=== PATIENT | male | born 1940 | race Caucasian/White ===

== ENCOUNTER 2018-06-08 13:41 | Emergency (ER) | payer MEDICARE, MEDICAID ==
[~2018-06-08] VITALS: Ht 165.1 cm; Wt 52.2 kg
--- NOTE | 2018-06-08 14:30 | NUR ---
G-tube (18fr) placed by .
[2018-06-08] MEDS ORDERED: DIATR MEGLU/DIATRIZOATE SODIUM 120 ML BOTTLE ONE (14:42)
--- NOTE | 2018-06-08 15:28 | NUR ---
Per pt may be d/c back to his [facility] facility. I spoke to Shy ([phone]) at pt's facility, gave her report and verified the address. Jorge called for transport, eta 1700.
--- NOTE | 2018-06-08 17:43 | NUR ---
Pt d/c back to his [facility] facility via [facility], NAD noted.
== END 2018-06-08 17:45 | disposition home or self-care (01) ==
LOC: ER 13:45
DX: Z43.1 Encounter for attention to gastrostomy (principal); I10 Essential (primary) hypertension; E78.5 Hyperlipidemia, unspecified; J44.9 Chronic obstructive pulmonary disease, unspecified; Z95.0 Presence of cardiac pacemaker; Z88.0 Allergy status to penicillin; Z88.6 Allergy status to analgesic agent; Z88.8 Allergy status to other drugs, medicaments and biological substances
CPT/HCPCS: 43760; 74018; 99284; Q9963; A4663

== ENCOUNTER 2018-06-14 12:14 | Inpatient (IN) | payer MEDICAID, MEDICARE ==
[~2018-06-14] VITALS: Ht 165.1 cm; Wt 52.2 kg
--- NOTE | 2018-06-14 12:30 | NUR ---
There are no ER beds available at this time, pt placed in a eros chair and pt is in the hallway.
[2018-06-14] MEDS ORDERED: LORA-258 GT (12:32)
[2018-06-14] MEDS ORDERED: MAGN400O6 GT (12:32)
[2018-06-14] MEDS ORDERED: LEVE500T9 GT (12:32)
[2018-06-14] MEDS ORDERED: ACET-2154 GT (12:32)
[2018-06-14] MEDS ORDERED: LEVO25TA9 GT (12:32)
[2018-06-14] MEDS ORDERED: DOCU-141 GT (12:32)
[2018-06-14] MEDS ORDERED: QUET25TA PO (12:32)
[2018-06-14] MEDS ORDERED: TEMA15CA5 GT (12:32)
[2018-06-14] MEDS ORDERED: FAMO40TA7 GT (12:32)
[2018-06-14] MEDS ORDERED: BISA10SU12 RC (12:32)
[2018-06-14] MEDS ORDERED: HYDR-3326 PO (12:32)
[2018-06-14] MEDS ORDERED: IPRA0.2S6 NEB (12:32)
[2018-06-14] MEDS ORDERED: GLUCERNA VANILLA GT (12:32)
--- NOTE | 2018-06-14 13:25 | NUR ---
Pt moved to room 5a.
--- NOTE | 2018-06-14 14:31 | NUR ---
transfered pt to floor in stable condition.
[2018-06-14 14:34] LABS: BASOPHILS % (AUTO) 0.2 % (0.0-2.0); EOSINOPHILS # (AUTO) 0.1 K/uL (0.0-0.7); EOSINOPHILS % (AUTO) 1.1 % (0.0-7.0); HEMATOCRIT 41.5 % (36.7-47.1); HEMOGLOBIN 13.8 g/dL (12.5-16.3); LYMPHOCYTES % (AUTO) 8.8 % (20.5-51.5); MEAN CORPUSCULAR HEMOGLOBIN 33.1 uug (23.8-33.4); MEAN CORPUSCULAR HGB CONC 33 g/dL (32.5-36.3); MEAN CORPUSCULAR VOLUME 99.3 fL (73.0-96.2); MONOCYTES # (AUTO) 0.6 K/uL (2.0-10.0); MONOCYTES % (AUTO) 5.2 % (0.0-11.0); NEUTROPHILS # (AUTO) 9.4 K/uL (1.8-8.9); NEUTROPHILS % (AUTO) 84.7 % (38.5-71.5); PLATELET COUNT (AUTO) 153 K/uL (152-348); RED BLOOD CELL COUNT(AUTO) 4.17 MIL/uL (4.06-5.63); WHITE BLOOD COUNT (AUTO) 11.1 K/uL (3.6-10.2)
[2018-06-14 14:46] LABS: CARBON DIOXIDE 26 mmol/L (21-32); CHLORIDE 106 mmol/L (98-107); CREATININE 1.1 mg/dL (0.6-1.3); GLUCOSE 71 mg/dL (74-106); POTASSIUM 4.4 mmol/L (3.5-5.1); UREA NITROGEN, BLOOD 42 mg/dL (7-18)
[2018-06-14 14:51] LABS: ALANINE AMINOTRANSFERASE 18 U/L (16-63); ALKALINE PHOSPHATASE 137 U/L (50-136); ASPARTATE AMINOTRANSFERASE 16 U/L (15-37); BILIRUBIN,DIRECT 0.3 mg/dL (0.0-0.2); BILIRUBIN,TOTAL 0.7 mg/dL (0.2-1.0)
--- NOTE | 2018-06-14 15:10 | NUR ---
78 year old male received from er via [facility] for gtube replacement,v/s are stable .call light and bed alarm on, called for admission
[2018-06-14] MEDS ORDERED: BISACODYL 10 MG SUPP.RECT RC PRN (15:30)
[2018-06-14] MEDS ORDERED: IPRATROPIUM BROMIDE 0.5 MG/2.5 ML NEBU NEB PRN (15:30)
[2018-06-14] MEDS ORDERED: LORAZEPAM 2 MG/1 ML VIAL IV PRN (15:45)
[2018-06-14] MEDS ORDERED: ONDANSETRON 4 MG/2 ML VIAL IV PRN (15:45)
[2018-06-14] MEDS ORDERED: IV D5/ 0.9% NACL 1,000 ML IV PRN (15:45)
[2018-06-14] MEDS ORDERED: ACETAMINOPHEN 650 MG SUPP.RECT RC PRN (15:45)
[2018-06-14] MEDS ORDERED: MORPHINE SULFATE 2 MG/1 ML DISP.SYRIN IV PRN (15:45)
[2018-06-14] MEDS ORDERED: IV D5W-0.45% NS 1000 ML BAG IV ONE (15:45)
[2018-06-14 16:00] VITALS: BP 123/80
[2018-06-14 16:21] LABS: *BILIRUBIN,URIN NEGATIVE (NEGATIVE); *BLOOD, URINE 2+ (NEGATIVE); *CLARITY,URINE CLOUDY (CLEAR); *COLOR,URINE YELLOW (YELLOW); *KETONES,URINE 3+ (NEGATIVE); *PROTEIN,URINE 2+ (NEGATIVE); *UROBILINOGEN,URINE 0.2 E.U./dl (NORMAL); LEUKOCYTE ESTERASE ,URINE 3+ (NEGATIVE); NITRITE, URINE POSITIVE (NEGATIVE); PH,URINE >=9.0 (5.0-8.0); UGLUCOSE NEGATIVE (NEGATIVE)
[2018-06-14 16:29] LABS: BACTERIA,URINE MANY /HPF (NONE SEEN); SQUAMOUS EPITHELIAL CELL,UR FEW /HPF (NONE SEEN)
--- NOTE | 2018-06-14 18:00 | NUR ---
Sid OTT from [facility] called and stated that pt doesnt have any relative.
--- NOTE | 2018-06-14 19:10 | NUR ---
RECEIVED PT AWAKE ON BED, PLEASANTLY CONFUSED. NO SIGNS OF ACUTE DISTRESS NOTED AT THIS TIME. ON SUPRAPUBIC CATHETER, DRAINING WELL VIA GRAVITY. PER MORNING SHIFT RN, PT IS SCHEDULED FOR PROCEDURE TOMORROW AND CONSENT SIGNING NEEDED TO BE FOLLOWED UP WITH ATTENDING PHYSICIAN AND SURGEON. SAFETY MEASURES INITIATED.
[2018-06-14 20:00] VITALS: BP 123/75
--- NOTE | 2018-06-14 20:30 | NUR ---
UNABLE TO OBTAIN CONSENT FOR EGD SCHEDULED FOR AM DUE TO PT MENTAL STATUS. PT HAS NO FAMILY NOTED TO SIGN. DR MENDIETA NOTFIED. MD MADE AWARE ON PT CODE STATUS, PER MD PT WILL REMAIN ON FULL CODE STATUS. ROUTE DRIVER SALESPERSON NOTIFIED, WILL ENDORSE ACCORDINGLY TO AM SHIFT.
[2018-06-14] MEDS ORDERED: CEFTRIAXONE 1 G in IV DEXTROSE 5% 50 ML IV SCH (23:30)
[2018-06-15 04:00] VITALS: BP 128/81
[2018-06-15 06:32] LABS: BASOPHILS % (AUTO) 0.2 % (0.0-2.0); EOSINOPHILS # (AUTO) 0.2 K/uL (0.0-0.7); EOSINOPHILS % (AUTO) 1.9 % (0.0-7.0); HEMATOCRIT 39.4 % (36.7-47.1); HEMOGLOBIN 13.2 g/dL (12.5-16.3); LYMPHOCYTES % (AUTO) 11.5 % (20.5-51.5); MEAN CORPUSCULAR HEMOGLOBIN 33.5 uug (23.8-33.4); MEAN CORPUSCULAR HGB CONC 34 g/dL (32.5-36.3); MEAN CORPUSCULAR VOLUME 99.7 fL (73.0-96.2); MONOCYTES # (AUTO) 0.5 K/uL (2.0-10.0); MONOCYTES % (AUTO) 6.5 % (0.0-11.0); NEUTROPHILS # (AUTO) 6.7 K/uL (1.8-8.9); NEUTROPHILS % (AUTO) 79.9 % (38.5-71.5); PLATELET COUNT (AUTO) 145 K/uL (152-348); RED BLOOD CELL COUNT(AUTO) 3.95 MIL/uL (4.06-5.63); WHITE BLOOD COUNT (AUTO) 8.4 K/uL (3.6-10.2)
[2018-06-15 06:50] LABS: ALANINE AMINOTRANSFERASE 16 U/L (16-63); ALKALINE PHOSPHATASE 125 U/L (50-136); ASPARTATE AMINOTRANSFERASE 15 U/L (15-37); BILIRUBIN,TOTAL 0.5 mg/dL (0.2-1.0); CARBON DIOXIDE 26 mmol/L (21-32); CHLORIDE 110 mmol/L (98-107); GLUCOSE 109 mg/dL (74-106); MAGNESIUM 2.2 mg/dL (1.8-2.4); PHOSPHOROUS 2.6 mg/dL (2.5-4.9); POTASSIUM 4.1 mmol/L (3.5-5.1); TOTAL PROTEIN, SERUM 7.3 g/dL (6.4-8.2); UREA NITROGEN, BLOOD 38 mg/dL (7-18)
--- NOTE | 2018-06-15 07:03 | NUR ---
PT RESTING COMFORTABLY ON BED, PLEASANTLY CONFUSED. NO SIGNS OF DISCOMFORT NOTED AT THIS TIME. IV SITE PATENT AND INTACT. ON SUPRAPUBIC CATHETER DRAINING WELL VIA GRAVITY. JIMMY CARE AND SKIN CARE PROVIDED. PT KEPT ON NPO FOR PROCEDURE. ALL NEEDS ANTICIPATED AND ATTENDED. SAFE ENVIRONMENT MAINTAINED, CALL [facility] WITHIN REACH.
--- NOTE | 2018-06-15 07:30 | NUR ---
TO GI LAB VIA BED CONDITION STABLE
[2018-06-15] MEDS ORDERED: PANTOPRAZOLE SODIUM 40 MG VIAL IV SCH ×2 (09:00)
[2018-06-15] MEDS ORDERED: NICOTINE 14 MG/24HR PATCH TD SCH (09:00)
[2018-06-15 09:10] VITALS: BP 137/77
--- NOTE | 2018-06-15 09:10 | NUR ---
BACK TO ROOM GT INPLACE AND CLAMP ABD BINDER INPLACE ,CONTINUE IVF ON ASPIRATION AND FALL PRECAUTION BED ALARM ON AND CALL LIGHT IN REACH
[2018-06-15] MEDS ORDERED: IV LACTATED RINGERS SOLUTION 1,000 ML IV PRN (11:00)
[2018-06-15 11:30] VITALS: BP 137/84
--- NOTE | 2018-06-15 11:30 | NUR ---
GT FEEDING WITH GLUCENA 240ML BOLUS BAL WELL NO PAIN OR N/V CLOSED OBSERVATION
[2018-06-15] MEDS ORDERED: IV D5 1/2 NS 1000 ML 1,000 ML IV PRN (11:45)
[2018-06-15] MEDS ORDERED: GLUCERNA 1.2 1000ML LIQUID GT SCH ×2 (12:00)
--- NOTE | 2018-06-15 15:00 | NUR ---
D/C INSTRUCTION REGARDING F/U WITH PMD CONTINUE HOME MEDICINE ORDER GIVEN TO SOFT [facility]ARDER /HOSPICES AND IV HL WAS D/C PRIOR D/C HOME
[2018-06-15 15:27] VITALS: BP 130/77
[2018-06-15] MEDS ORDERED: IV LACTATED RINGERS SOLUTION 1,000 ML BAG IV ONE (15:59)
[2018-06-15] MEDS ORDERED: LIDOCAINE HCL 2% 20 ML VIAL MC ONE (15:59)
[2018-06-15] MEDS ORDERED: CEFAZOLIN 1 G VIAL MC ONE (15:59)
[2018-06-15] MEDS ORDERED: PROPOFOL 200 MG/20 ML BOTTLE IV ONE (15:59)
--- NOTE | 2018-06-15 16:00 | NUR ---
D/C BACK HOME HOSPICES WILL CONTINUE F/U ON HIM ORDER NO ACUTE DISTRESS GT AND S-P CATH INPLACE ABDOMINAL BINDER INPLACE
--- NOTE | 2018-06-15 16:05 | NUR ---
GO HOME VIA AMBULANCE WITH HIS BELONGING CONDITION STABLE
== END 2018-06-15 16:00 | disposition hospice, home (50) | DRG 254 ==
LOC: ER 12:19 → MED 14:28
PROVIDERS: ADMIT Internal Medicine; ATTEND Internal Medicine
PROC: 0DH63UZ Insertion of Feeding Device into Stomach, Percutaneous Approach (ICD-10-PCS; principal; 2018-06-15 08:12)
DX: Z43.1 Encounter for attention to gastrostomy (principal); J44.9 Chronic obstructive pulmonary disease, unspecified; R13.10 Dysphagia, unspecified; F03.90 Unspecified dementia, unspecified severity, without behavioral disturbance, psychotic disturbance, mood disturbance, and anxiety; E44.1 Mild protein-calorie malnutrition; Z68.1 Body mass index [BMI] 19.9 or less, adult; Z95.0 Presence of cardiac pacemaker; I10 Essential (primary) hypertension; E78.5 Hyperlipidemia, unspecified; D72.829 Elevated white blood cell count, unspecified; Z79.899 Other long term (current) drug therapy
CPT/HCPCS: 36415; 70030-TC; 71045; 83735; 84100; 84443; 85025; 85730; 93005; A4217; A4663; C9113; G0378; J0690; J0696; J2060; J3490; J7042; J7060; J7120; Z7610